=== PATIENT | female | born 1965 | race Two or more races ===

== ENCOUNTER 2025-02-06 06:50 | Day surgery (SDC) | payer MEDICAID, SELFPAY ==
--- NOTE | 2025-02-02 19:23 | ESHP_ITS ---
RE: LEO ONEAL : 1965 DATE OF ADMISSION: 02/06/2025 HISTORY OF PRESENT ILLNESS: This is a 59-year-old 5 para 5 with endometrial polyp, who presents for removal of endometrial polyp. She has had some postmenopausal bleeding. ALLERGIES: NO KNOWN DRUG ALLERGIES. MEDICATIONS: 1. Estradiol 0.1 mg per 24-hour skin patch apply twice weekly. 2. Ozempic. 3. Levothyroxine 25 mcg p.o. daily. 4. Micronized progesterone gel daily. SOCIAL HISTORY: She is . She denies any alcohol or drug use or smoking. PAST SURGICAL HISTORY: Cholecystectomy. REVIEW OF SYSTEMS: She denies any chest pain, palpitations, cough, fever, shortness of breath or lower extremity pain. PHYSICAL EXAMINATION: VITAL SIGNS: Blood pressure is 125/75, heart rate 88, respirations 18, temperature is 98.6, and weight 201 pounds. HEENT: Oropharynx and sclerae are clear. LUNGS: Clear to auscultation bilaterally. HEART: Regular rate and rhythm. ABDOMEN: Nontender. EXTREMITIES: Nontender. SKIN: No gross rashes or lesions. NEUROLOGIC: No focal deficit. ASSESSMENT: Postmenopausal bleeding and endometrial polyp. PLAN: Hysteroscopy, MyoSure removal of endometrial polyps, and fractional dilatation and curettage. Informed consent was obtained. The patient made aware of the risks, complications, alternatives, and benefits of the proposed procedure and she agrees. She is aware of the risk of injury to bowel, bladder or adjacent organs, pulmonary embolism, deep vein thrombosis, pelvic infection, reoperation to repair injury to internal organs, anesthesia complications, the possibility that a laparotomy needs to be performed to repair organs or control bleeding and the possibility that the procedure is not able to be completed due to severe adhesions or technical difficulties. DT: 18:50:43 TT: 19:21:00 Ref: [id number] - TID: [id number]
[2025-02-05 09:29] VITALS: BMI 32.2
[2025-02-05 10:04] LABS: Basophils # (Auto) 0.0 Thou/mm3 (0.0-0.2); Basophils % (Auto) 1 % (0-2.5); Eosinophils # (Auto) 0.1 Thou/mm3 (0.0-0.5); Eosinophils % (Auto) 2 % (0-10); Hematocrit 39.3 % (36.0-46.0); Hemoglobin 12.7 g/dL (12.0-16.0); Immature Granulocytes Auto 0.01 Thou/mm3 (0.00-0.00); Lymphocytes # (Auto) 1.9 Thou/mm3 (1.0-4.8); Lymphocytes % (Auto) 39 % (10-50); Mean Corpuscular HGB Conc 32.3 g/dl (31.0-37.0); Mean Corpuscular Hemoglobin 28.6 pg (25.0-35.0); Mean Corpuscular Volume 89 fL (80-100); Monocytes # (Auto) 0.3 Thou/mm3 (0.0-0.8); Monocytes % (Auto) 6 % (0-12); Neutrophils # (Auto) 2.6 Thou/mm3 (1.8-7.7); Neutrophils % (Auto) 52 % (37-80); Nucleated Red Blood Cell # 0.00 Thou/mm3 (0.00-0.00); Nucleated Red Blood Cell % 0 /100 WBC (0); Platelet Count 225 Thou/mm3 (140-440); RDW Standard Deviation 43.0 fL (36.4-46.3); Red Blood Count 4.44 Miln/mm3 (4.00-5.20); White Blood Count 5.0 Thou/mm3 (3.6-11.0)
[2025-02-05 10:12] LABS: INR 1.0 (0.9-1.3); Partial Thromboplastin Time 25.3 Seconds (22.0-36.0); Prothrombin Time 10.7 Seconds (9.0-12.2)
[2025-02-05 10:25] LABS: Alanine Aminotransferase 16 U/L (10-49); Albumin, Serum 4.1 gm/dL (3.5-5.0); Albumin/Globulin Ratio 1.5 (1.2-2.2); Alkaline Phosphatase 72 U/L (46-116); Anion Gap 7 (7-16); Aspartate Amino Transferase 18 U/L (0-34); BUN/Creatinine Ratio 17 Ratio (12-20); Bilirubin,Total 0.4 mg/dL (0.3-1.2); Blood Urea Nitrogen 15 mg/dL (9-23); Calcium 8.6 mg/dL (8.3-10.6); Calcium (Corrected) 8.6 mg/dL (8.5-10.1); Carbon Dioxide 22.6 mMol/L (20.0-31.0); Chloride 110 mMol/L (98-107); Creatinine (Component) 0.9 mg/dL (0.6-1.3); Estimated Creatinine Clearance 77.2 mL/min (>60); Globulin 2.8 gm/dL (2.3-3.5); Glucose 108 mg/dL (74-106); Osmolality,Calculated 281 (275-295); Potassium 4.2 mMol/L (3.4-5.1); Sodium 140 mMol/L (136-145); Total Protein 6.9 gm/dL (5.7-8.2); eGFR > 60 See Note
[2025-02-06] VITALS (7 sets, daily range): BP systolic 96–119; BP diastolic 63–81; PULSE 74–95; RESP 12–18; TEMP 36.2–36.4; O2SAT 98–100; BMI 32.1
--- NOTE | 2025-02-06 07:20 | CHAP ---
Prayed with patient as they were trying to find a vein in her arm. After the prayer, they were done and she commented that she didn't even feel them at work.
--- NOTE | 2025-02-06 09:16 | SUR.PHASEI ---
0916: Pt. AAOx4, vitals stable, breathing unlabored, no complaint of pain or nausea, peripad in place CDI, no active bleed noted, report received from Matty PATTERSON and Kiah OLEARY.
--- NOTE | 2025-02-06 10:10 | SUR.PHASEII ---
1010:Pt. AAOx4, vitals stable, breathing unlabored, no complaint of pain or nausea, peripad in place, no active bleed noted, pt. tolerated sips of water well, pt. ambulated to wheelchair with steady gait and no assist, no complications. Gave discharge instructions to the pt. and her ride, both verbalized understanding and had no further questions. Pt. left with all personal belongings.
--- NOTE | 2025-02-12 07:58 | ESOP_ITS ---
RE: LEO ONEAL : 1965 DATE OF OPERATION: 02/06/2025 PREOPERATIVE DIAGNOSES: 1. Postmenopausal bleeding. 2. Endometrial polyp. POSTOPERATIVE DIAGNOSES: 1. Postmenopausal bleeding. 2. Endometrial polyp. PROCEDURES: 1. Hysteroscopy. 2. MyoSure removal of endometrial polyp. 3. Fractional dilatation and curettage. INSEMINATOR: None. ANESTHESIA: General. ANESTHESIOLOGIST: Matty Allison CRNA ESTIMATED BLOOD LOSS: 5 mL. COMPLICATIONS: None. COUNTS: Correct. PATHOLOGY: 1. Endometrial polyp. 2. Endocervical curettings. 3. Endometrial curettings. FINDINGS: The uterus sounds to 8 cm, a broad-based endometrial polyp at the posterior fundal aspect of the uterus. No other distortions, irregularities, or abnormalities of the uterine or endocervical cavity were noted. DESCRIPTION OF PROCEDURE: After proper informed consent was obtained and the patient was made aware of the risks, complications, alternatives, and benefits of the proposed procedure, she was taken to the operating room where she underwent induction of general anesthesia. She was placed in dorsal lithotomy and prepped and draped in the usual sterile fashion. A timeout was performed. A bivalve speculum was inserted. A single-tooth tenaculum was used to grasp the anterior lip of the cervix. The cervix was dilated to accommodate the 5.5 mm Omni hysteroscope. Using the Aquilex system and normal saline as the distending media, the hysteroscopy was performed and the broad-based 3 x 3 mm myoma was visualized in the uterine cavity. Using the MyoSure Reach device, the polypectomy was performed and the specimen sent to Pathology. The fluid deficit at the end of the MyoSure procedure was 0. The endocervix was curetted with a Kevorkian curette and specimen sent to Pathology. The uterine cavity was curetted with a 5 mm curette and specimen sent to Pathology. There was no bleeding at the end of the procedure. All instruments were removed from the vagina. She was reversed from general anesthesia in the supine position and transferred to the recovery room in stable condition. She tolerated the procedure well. Counts were correct. I discussed with the patient's mother the nature of her condition, intraoperative findings, expectation for recovery. All questions answered. Estimated blood loss was 5 mL. DT: 09:29:16 TT: 10:09:00 Ref: [id number] - TID: [id number]
== END 2025-02-06 10:10 | disposition home or self-care (01) ==
PROVIDERS: PCP Physician Assistant; Referring Provider Specialist; Visit Provider Specialist
PROC: 0UJD8ZZ Inspection of Uterus and Cervix, Via Natural or Artificial Opening Endoscopic (ICD-10-PCS; CPT 58555; principal; 2025-02-06 08:45)
DX: N84.0 Polyp of corpus uteri (principal); N95.0 Postmenopausal bleeding
CPT/HCPCS: 58561; 36415; 80053; 85025; 85610; 85730; 86850; 86900; 86901; A4217; A4649; J0131; J0690; J1885; J2250; J2704; J3010; J3490